=== PATIENT | female | born 1975 | race Caucasian/White ===

== ENCOUNTER 2017-05-05 20:56 | Emergency (ER) | payer OTHER ==
[2017-05-05 21:09] VITALS: TEMP 98.9; BMI 29.2
--- NOTE | 2017-05-05 22:07 | PDOC ---
History of Present Illness - General History Source: Patient Exam Limitations: No Limitations - History of Present Illness Initial Comments: 05/05/17 23:03 The patient is a 42 year old female with a significant past medical history of PTSD and anxiety who presents to the ED with complaints of lower extremity edema. The patient reports bilateral lower extremity edema that is worsened when she stands and relieved when she lays down. She reports pain in her lower extremities bilaterally that is worsened when walking. Patient also reports dizziness when she eats. Denies dysuria or changes in urinary output. Denies chest pain or shortness of breath. Denies loss of appetite. Denies fevers or chills. Denies nausea, vomiting, or diarrhea. Denies any other symptoms. Social hx: The patient is a pack a day smoker since she was 10. The patient stays at home with daughter, does not work. Surgical hx: , gallbladder removal <Morgan Reich - Last Filed: 05/05/17 23:03> <Zuly Mcclain - Last Filed: 05/06/17 20:53> - General Chief Complaint: Edema Stated Complaint: SWOLLEN LEGS Time Seen by Provider: 05/05/17 21:50 Past History <Morgan Reich - Last Filed: 05/05/17 23:03> - Past Medical History GI Disorders: Yes (GALLSTONES) - Surgical History Cholecystectomy: Yes - Immunization History Immunization Up to Date: Yes - Psycho/Social/Smoking Cessation Hx Anxiety: No Suicidal Ideation: No Smoking History: Current every day smoker Have you smoked in the past 12 months: Yes Number of Cigarettes Smoked Daily: 20 Information on smoking cessation initiated: No 'Breaking Loose' booklet given: 11/04/14 Hx Alcohol Use: No Drug/Substance Use Hx: No Substance Use Type: None Hx Substance Use Treatment: No <Zuly Mcclain - Last Filed: 05/06/17 20:53> - Past Medical History Allergies/Adverse Reactions: Allergies Allergy/AdvReac Type Severity Reaction Status Date / Time No Known Allergies Allergy Verified 05/05/17 21:10 Home Medications: Ambulatory Orders NK [No Known Home Medication] 05/05/17 Review of Systems - Review of Systems Able to Perform ROS?: Yes Comments:: 05/05/17 23:03 CONSTITUTIONAL: Absent: fever, chills, diaphoresis, generalized weakness, malaise, loss of appetite HEENT: Absent: rhinorrhea, nasal congestion, throat pain, throat swelling, difficulty swallowing, mouth swelling, ear pain, eye pain, visual Changes CARDIOVASCULAR: Absent: chest pain, syncope, palpitations, irregular heart rate, lightheadedness , peripheral edema RESPIRATORY: Absent: cough, shortness of breath, dyspnea with exertion, orthopnea, wheezing, stridor, hemoptysis GASTROINTESTINAL: Absent: abdominal pain, abdominal distension, nausea, vomiting, diarrhea, constipation, melena, hematochezia GENITOURINARY: Absent: dysuria, frequency, urgency, hesitancy, hematuria, flank pain, genital pain MUSCULOSKELETAL: + leg edema, leg pain SKIN: Absent: rash, itching, pallor HEMATOLOGIC/IMMUNOLOGIC: Absent: easy bleeding, easy bruising, lymphadenopathy, frequent infections ENDOCRINE: Absent: unexplained weight gain, unexplained weight loss, heat intolerance, cold intolerance NEUROLOGIC: + dizziness Absent: headache, focal weakness or paresthesias, unsteady gait, seizure, mental status changes, bladder or bowel incontinence PSYCHIATRIC: Absent: anxiety, depression, suicidal or homicidal ideation, hallucinations. All Other Systems: Reviewed and Negative <Morgan Reich - Last Filed: 05/05/17 23:03> *Physical Exam - Vital Signs Last Vital Signs Temp Pulse Resp BP Pulse Ox 98.9 F 91 H 22 141/62 97 05/05/17 21:07 05/05/17 21:07 05/05/17 21:07 05/05/17 21:07 05/05/17 21:07 - Physical Exam Comments: 05/05/17 23:03 GENERAL:+ smells of cigarettes Well developed, well nourished. Awake and alert. No acute distress. HEENT: Normocephalic, atraumatic. PERRLA, EOMI. No conjunctival pallor. Sclera are non- icteric. Moist mucous membranes. Oropharynx is clear. NECK: Supple. Full ROM. No JVD. Carotid pulses 2+ and symmetric, without bruits. No thyromegaly. NCo lymphadenopathy. CARDIOVASCULAR: Regular rate and rhythm. No murmurs, rubs, or gallops. Distal pulses are 2+ and symmetric. PULMONARY: No evidence of respiratory distress. Lungs clear to auscultation bilaterally. No wheezing, rales or rhonchi. ABDOMINAL: Soft. Non-tender. Non-distended. No rebound or guarding. No organomegaly. Normoactive bowel sounds. MUSCULOSKELETAL Normal range of motion at all joints. No bony deformities or tenderness. No CVA tenderness. EXTREMITIES: No cyanosis. No clubbing. No edema. No calf tenderness. SKIN: Warm and dry. Normal capillary refill. No rashes. No jaundice. NEUROLOGICAL: Alert, awake, appropriate. Cranial nerves 2-12 intact. No deficits to light touch and temperature in face, upper extremities and lower extremities. No motor deficits in the in face, upper extremities and lower extremities. Normoreflexic in the upper and lower extremities. Normal speech. Toes are down- going bilaterally. Gait is normal without ataxia. PSYCHIATRIC: Cooperative. Good eye contact. Appropriate mood and affect. <Morgan Reich - Last Filed: 05/05/17 23:03> - Vital Signs Last Vital Signs Temp Pulse Resp BP Pulse Ox 98.9 F 91 H 22 141/62 97 05/05/17 21:07 05/05/17 21:07 05/05/17 21:07 05/05/17 21:07 05/05/17 21:07 <Zuly Mcclain - Last Filed: 05/06/17 20:53> ED Treatment Course - LABORATORY CBC & Chemistry Diagram: 05/05/17 23:40 05/05/17 23:40 <Zuly Mcclain - Last Filed: 05/06/17 20:53> Medical Decision Making - Medical Decision Making 05/06/17 00:26 Patient Name: Flory Elena THIS IS A PRELIMINARYREPORT FROM [facility] EXAM : Venous duplex bilateral lower extremities IMAGES: 39 INDICATION: Rule out DVT DATE OF SERVICE: 2017-05-05 22:26:32.0 COMPARISON: none FINDINGS: There is no DVT in the right and left lower extremity. IMPRESSION: No DVT. THIS DOCUMENT HAS BEEN ELECTRONICALLY SIGNED 05/06/17 20:50 Pt comes with complaint of edema of her legs bilaterally. SHe has normal exam. SHe has a hx of anxiety and PTSD. Pt's sono demonstrates no DVT in either leg. She has normal labs except for low potassium. Pt was asked to eat bananas and OJ and follow with PMD. She was givenb Potassium Chloride PO in the ER. Pt is stable for discharge home. <Zuly Mcclain - Last Filed: 05/06/17 20:53> *DC/Admit/Observation/Transfer - Attestations Scribe Attestion: 05/05/17 23:03 Documentation prepared by Morgan Reich, acting as emergency medicine medical director for Zuly Mcclain MD <Morgan Reich - Last Filed: 05/05/17 23:03> <Zuly Mcclain - Last Filed: 05/06/17 20:53> Diagnosis at time of Disposition: dischareged - Discharge Dispostion Disposition: HOME
[2017-05-05 23:58] LABS: URINE APPEARANCE CLEAR; URINE BILIRUBIN NEGATIVE (NEGATIVE); URINE BLOOD NEGATIVE (NEGATIVE); URINE COLOR COLORLESS; URINE GLUCOSE (UA) NEGATIVE (NEGATIVE); URINE KETONE NEGATIVE (NEGATIVE); URINE LEUK ESTERASE NEGATIVE (NEGATIVE); URINE NITRITE NEGATIVE (NEGATIVE); URINE PROTEIN NEGATIVE (NEGATIVE); URINE UROBILINOGEN NEGATIVE E.U./dl (0.2-1.0)
[2017-05-06 00:02] LABS: BASOPHIL 0.6 % (0-2.0); EOSINOPHIL 0.5 % (0-4.5); MCH 22.6 pg (25.7-33.7); MCHC 31.7 g/dl (32.0-36.0); MEAN CELL VOLUME 71.5 fl (80-96); MEAN PLT VOLUME 7.8 fl (7.5-11.1); NEUTROPHILS 69.8 % (42.8-82.8); PLATELET COUNT 330 K/MM3 (134-434); RDW 14.4 % (11.6-15.6); WHITE BLOOD COUNT 13.9 K/mm3 (4.0-10.0)
[2017-05-06 00:12] LABS: INR 0.96 (0.82-1.09); PROTHROMBIN TIME (PATIENT) 10.5 SEC (9.98-11.88)
[2017-05-06 00:27] LABS: ALBUMIN 2.8 g/dl (3.4-5.0); AMYLASE 40 U/L (25-115); ANION GAP 12 (8-16); CALCIUM 8.2 mg/dL (8.5-10.1); CO2 27 mmol/L (21-32); GLUCOSE,RANDOM 90 mg/dL (74-106)
[2017-05-06 00:31] LABS: ALK PHOS 108 U/L (45-117); BILIRUBIN,TOTAL 0.2 mg/dL (0.2-1.0); COCKROFT - GAULT 141.3635; CREATININE 0.6 mg/dL (0.55-1.02); SGOT/AST 9 U/L (15-37); SGPT/ALT 10 U/L (12-78); TOT PROT 6.5 g/dl (6.4-8.2)
[2017-05-06] MEDS ORDERED: POTASSIUM CHLORIDE TABS 20 MEQ TABLET.ER (FP) PO ONE ×2 (00:55→01:26)
[2017-05-06 01:41] VITALS: BP 132/78; PULSE 78
== END 2017-05-06 01:41 | disposition home or self-care (01) ==
LOC: SUPCPDRO 20:56 → JER 20:56
DX: R60.9 Edema, unspecified (principal); F43.10 Post-traumatic stress disorder, unspecified; F17.210 Nicotine dependence, cigarettes, uncomplicated; Z87.19 Personal history of other diseases of the digestive system
CPT/HCPCS: 36415; 80053; 81003; 82150; 83690; 84703; 85025; 85610; 93970-TC; 99282-25

== ENCOUNTER 2019-02-07 23:20 | Emergency (ER) | payer OTHER ==
[2019-02-07 23:30] VITALS: BMI 30.7
--- NOTE | 2019-02-08 00:10 | PDOC ---
History of Present Illness - General Chief Complaint: Back Pain Stated Complaint: BACK PAIN Time Seen by Provider: 02/07/19 23:48 - History of Present Illness Initial Comments: 02/08/19 00:09 The patient denies chest pain, shortness of breath, headache and dizziness. Denies fever, chills, nausea, vomit, diarrhea and constipation. Denies dysuria, frequency, urgency and hematuria. Past History - Past Medical History Allergies/Adverse Reactions: Allergies Allergy/AdvReac Type Severity Reaction Status Date / Time aspirin Allergy Verified 02/07/19 23:27 Home Medications: Ambulatory Orders NK [No Known Home Medication] 05/05/17 COPD: No GI Disorders: Yes (GALLSTONES) - Surgical History Cholecystectomy: Yes - Immunization History Immunization Up to Date: Yes - Suicide/Smoking/Psychosocial Hx Smoking History: Never smoked Have you smoked in the past 12 months: Yes Number of Cigarettes Smoked Daily: 20 'Breaking Loose' booklet given: 11/04/14 Hx Alcohol Use: No Drug/Substance Use Hx: No Substance Use Type: None Hx Substance Use Treatment: No Review of Systems - Review of Systems Comments:: 02/08/19 00:09 GENERAL/CONSTITUTIONAL: No fever or chills. No weakness. HEAD, EYES, EARS, NOSE AND THROAT: No change in vision. No ear pain or discharge. No sore throat. CARDIOVASCULAR: No chest pain or shortness of breath RESPIRATORY: No cough, wheezing, or hemoptysis. GASTROINTESTINAL: No nausea, vomiting, diarrhea or constipation. GENITOURINARY: No dysuria, frequency, or change in urination. MUSCULOSKELETAL: No joint or muscle swelling or pain. No neck or back pain. SKIN: No rash NEUROLOGIC: No headache, vertigo, loss of consciousness, or change in strength/ sensation. ENDOCRINE: No increased thirst. No abnormal weight change HEMATOLOGIC/LYMPHATIC: No anemia, easy bleeding, or history of blood clots. ALLERGIC/IMMUNOLOGIC: No hives or skin allergy. *Physical Exam - Vital Signs Last Vital Signs Temp Pulse Resp BP Pulse Ox 98.2 F 113 H 18 124/66 100 02/07/19 23:25 02/07/19 23:25 02/07/19 23:25 02/07/19 23:25 02/07/19 23:25 - Physical Exam Comments: 02/08/19 00:09 GENERAL: Awake, alert, and fully oriented, in no acute distress HEAD: No signs of trauma, normocephalic, atraumatic EYES: PERRLA, EOMI, sclera anicteric, conjunctiva clear ENT: Auricles normal inspection, hearing grossly normal, nares patent, oropharynx clear without exudates. Moist mucosa NECK: Normal ROM, supple, no lymphadenopathy, JVD, or masses LUNGS: No distress, speaks full sentences, clear to auscultation bilaterally HEART: Regular rate and rhythm, normal S1 and S2, no murmurs, rubs or gallops, peripheral pulses normal and equal bilaterally. ABDOMEN: Soft, nontender, normoactive bowel sounds. No guarding, no rebound. No masses EXTREMITIES: Normal inspection, Normal range of motion, no edema. No clubbing or cyanosis. NEUROLOGICAL: Cranial nerves II through XII grossly intact. Normal speech, normal gait, no focal sensorimotor deficits SKIN: Warm, Dry, normal turgor, no rashes or lesions noted. Moderate Sedation - Procedure Monitoring Vital Signs: Procedure Monitoring Vital Signs Temperature 98.2 F 02/07/19 23:25 Pulse Rate 113 H 02/07/19 23:25 Respiratory Rate 18 02/07/19 23:25 Blood Pressure 124/66 02/07/19 23:25 O2 Sat by Pulse Oximetry (%) 100 02/07/19 23:25
[2019-02-08] MEDS ORDERED: KETOROLAC TROMETHAMINE 30 MG/1 ML VIAL IM ONE (00:16)
--- NOTE | 2019-02-08 00:16 | PDOC ---
History of Present Illness - General Chief Complaint: Back Pain Stated Complaint: BACK PAIN Time Seen by Provider: 02/07/19 23:48 History Source: Patient Exam Limitations: No Limitations - History of Present Illness Initial Comments: 02/08/19 00:02 43 yo female no significant pmh presents to the ED with right sided back pain. Pt states last Monday she lifted her ferret cage which was very heavy and the next morning had right sided mid back pain described as a constant pulling/spasm , non radiating, made worse when on right side and with movement. Pt tried Icy hot gel and advil at home without help. Pt admits to having a similar episode 1 year ago, went to [place] and got a 1 time injection which helped and the pain did not return. Pt denies saddle anesthesia, incontinence or retention of stool or urine, abdominal pain, numbness/tingling or weakness into either leg, midline spine tenderness, no difficulty ambulating, denies F/C/N/V, CP or SOB Past History - Past Medical History Allergies/Adverse Reactions: Allergies Allergy/AdvReac Type Severity Reaction Status Date / Time aspirin Allergy Verified 02/07/19 23:27 Home Medications: Ambulatory Orders NK [No Known Home Medication] 05/05/17 COPD: No GI Disorders: Yes (GALLSTONES) - Surgical History Cholecystectomy: Yes - Immunization History Immunization Up to Date: Yes - Suicide/Smoking/Psychosocial Hx Smoking History: Never smoked Have you smoked in the past 12 months: Yes Number of Cigarettes Smoked Daily: 20 'Breaking Loose' booklet given: 11/04/14 Hx Alcohol Use: No Drug/Substance Use Hx: No Substance Use Type: None Hx Substance Use Treatment: No Review of Systems - Review of Systems Constitutional: No: Chills, Fever Respiratory: No: Shortness of Breath Cardiac (ROS): No: Chest Pain ABD/GI: Yes: Other (denies abdominal pain). No: Constipated, Diarrhea, Nausea, Vomiting : No: Burning, Dysuria, Discharge, Frequency Musculoskeletal: Yes: Back Pain (right mid back) Integumentary: No: Change in Color Neurological: No: Numbness, Paresthesia, Weakness, Unsteady Gait, Ataxia *Physical Exam - Vital Signs Last Vital Signs Temp Pulse Resp BP Pulse Ox 98.2 F 113 H 18 124/66 100 02/07/19 23:25 02/07/19 23:25 02/07/19 23:25 02/07/19 23:25 02/07/19 23:25 - Physical Exam General Appearance: Yes: Nourished, Appropriately Dressed. No: Apparent Distress HEENT: positive: EOMI Neck: positive: Supple. negative: Tender midline Respiratory/Chest: positive: Lungs Clear, Normal Breath Sounds. negative: Accessory Muscle Use, Crackles, Wheezing Cardiovascular: positive: Regular Rhythm, S1, S2, Tachycardia. negative: Edema , JVD, Murmur Vascular Pulses: Dorsalis-Pedis (R): 4+, Doralis-Pedis (L): 4+ Gastrointestinal/Abdominal: positive: Flat, Soft. negative: Pulsatile Mass, Distended, Guarding, Rebound, Tenderness Musculoskeletal: positive: Normal Inspection, Other (no rashes, scars, step offs or deformity to back. Full ROM in flexion and extension of back, pain on palpation to lateral T 5-L5 back. negative straight leg raise bilaterally) Extremity: positive: Normal Capillary Refill Integumentary: positive: Normal Color, Dry, Warm Neurologic: positive: Fully Oriented, Alert, Normal Mood/Affect, Normal Response , Motor Strength 5/5. negative: Sensory Deficit Moderate Sedation - Procedure Monitoring Vital Signs: Procedure Monitoring Vital Signs Temperature 98.2 F 02/07/19 23:25 Pulse Rate 113 H 02/07/19 23:25 Respiratory Rate 18 02/07/19 23:25 Blood Pressure 124/66 02/07/19 23:25 O2 Sat by Pulse Oximetry (%) 100 02/07/19 23:25 Medical Decision Making - Medical Decision Making 02/08/19 01:56 43 yo female no sig pmh presents to the ED with 1 week of back pain, no incontinence, saddle anesthesia, numbness/weakness into the legs, abdominal pain , midline spine tenderness or rashs noted on exam Vitals show elevated HR otherwise WNL No concerning neurological s/s, neurovascualrly intact, pt ambulating, NAD, AOX3 DDX INLT: herniated disc (no neurological s/s, neg straight leg raise) Spine fracture (unlikely due to non traumatic cause of pain, no midline spine tenderness) Muscle spasm/sprain Pt given 30 mg IV toradol with great improvement in pain, able to flex and extend the spine without much pain, ambulating well Pt given Clinic referral to [facility], del PCP. Will f/u Pt understands dc instructions *DC/Admit/Observation/Transfer Diagnosis at time of Disposition: Back pain Qualifiers: Back pain location: thoracic back pain Chronicity: unspecified Back pain laterality: right Qualified Code(s): M54.6 - Pain in thoracic spine - Discharge Dispostion Disposition: HOME Condition at time of disposition: Good Decision to Admit order: No - Referrals Referrals: [facility] [Provider Group] - Patient Instructions Printed Discharge Instructions: DI for Low Back Pain, DI for Thoracic Back Pain Additional Instructions: Please make an appointment with the clinic referred to you. Expect a call regarding an appointment within the next 48 hours. Take over the counter Motrin and Tylenol for pain relief. Try to lift from your legs when lifting heavy objects. Return to the ER for new or concerning symptoms including but not limited to: numbness or weakness into your legs, inability to walk, incontinence or numbness in between your legs. Thank you - Post Discharge Activity
[2019-02-08] MEDS ORDERED: KETOROLAC TROMETHAMINE 30 MG/1 ML VIAL ONE (00:24)
--- NOTE | 2019-02-08 01:20 | PDOC ---
Attending Attestation - HPI HPI: 02/08/19 01:29 The patient is a 43-year-old female with no significant past medical history presents to the emergency department with back pain. The patient reported last Garth she lifted her ferrets cage without bending her knees, and the next morning she had pain to the right mid-back that comes around the flank region. The patient reports taking Advil and icy hot for the pain, without relief. The patient reports a similar incident about a year while moving her wardrobe. The patient reports following up at [facility], where she got an injection of Toradol, with relief. Denies saddle anesthesia, urinary or bowel incontinence , urinary symptoms, abdominal pain, chest pain, numbness, tingling, weakness, loss of sensation. Allergies: ASA PCP: Follows up [facility]. - Physicial Exam PE: 02/08/19 01:29 GENERAL: Awake, alert, and fully oriented, in no acute distress. +cigarettes smell on breath. HEAD: No signs of trauma EYES: PERRLA, EOMI, sclera anicteric, conjunctiva clear ENT: Auricles normal inspection, hearing grossly normal, nares patent, oropharynx clear without exudates. Moist mucosa NECK: Normal ROM, supple, no lymphadenopathy, JVD, or masses LUNGS: Breath sounds equal, clear to auscultation bilaterally. No wheezes, and no crackles HEART: Regular rate and rhythm, normal S1 and S2, no murmurs, rubs or gallops ABDOMEN: Soft, nontender. No guarding, no rebound. No masses EXTREMITIES: Normal range of motion, no edema. No clubbing or cyanosis. No cords, erythema, or tenderness Back: No C, T, L spine tenderness. R mid-thoracic paraspinal reproducible tenderness. NEUROLOGICAL: ambulates with a steady gait, able to ambulate on the toes and heels, sensation intact throughout. 5/5 muscle strength. Is able to dorsiflex the big toe. Normal speech. SKIN: Warm, Dry, normal turgor, no rashes or lesions noted. - Medical Decision Making 02/08/19 01:30 Documentation prepared by Jackie Burch, acting as medical practitioners for Olga Khan DO. <Jackie Burch - Last Filed: 02/08/19 01:30> - Resident Resident Name: [email or web address] - ED Attending Attestation I have performed the following: I have examined & evaluated the patient, The case was reviewed & discussed with the resident, I agree w/resident's findings & plan, Exceptions are as noted - Medical Decision Making 02/08/19 01:18 I, Dr. Olga Khan, DO, attest that this document has been prepared under my direction and personally reviewed by me in its entirety. I further attest, that it accurately reflects all work, treatment, procedures and medical decision -making performed by me. 02/08/19 01:19 a/p: 43yo female with R paraspinal back pain after lifting the ferret cage a week ago -hx of similar in the past which improved with toradol -pt denies all symptoms of caude equina -pt ambulates with a steady gait -no midline ttp -pt neuro intact, muscle strength 5/5 UE and LE -no low back ttp -no red flags -pt bent at the waste and lifted the cage without using her legs -will give im toradol and reassess 02/08/19 01:38 pt feeling much better ambulatory in the ED will repeat vitals and dc to home 02/08/19 01:47 vss improved stable for dc to home <Olga Khan - Last Filed: 02/08/19 01:47>
[2019-02-08 01:46] VITALS: BP 114/77; PULSE 83; TEMP 97.9
== END 2019-02-08 01:54 | disposition home or self-care (01) ==
LOC: JER 23:20
PROC: 3E0233Z Introduction of Anti-inflammatory into Muscle, Percutaneous Approach (ICD-10-PCS; principal; 2019-02-07)
DX: M54.6 Pain in thoracic spine (principal); X50.0XXA Overexertion from strenuous movement or load, initial encounter; Y93.89 Activity, other specified; Y92.038 Other place in apartment as the place of occurrence of the external cause; Y99.8 Other external cause status
CPT/HCPCS: 99282-25

== ENCOUNTER 2022-05-24 21:28 | Inpatient (IN) | payer OTHER ==
[2022-05-24 21:43] VITALS: BMI 32.9
[2022-05-24] MEDS ORDERED: ACETAMINOPHEN INJECTION 100 ML IVPB ONE (22:25)
[2022-05-24] MEDS ORDERED: ACETAMINOPHEN 1000 MG/100 ML BAG IVPB ONE (22:31)
[2022-05-24] MEDS ORDERED: ALBUTEROL SO4 2.5/IPRATROPIUM 0.5 INH SOL 3 ML VIAL.NEB. NEB ONE ×2 (22:31→22:37)
[2022-05-24 23:19] LABS: BASO % 0.3 % (0-2.0); EOS % 0.1 % (0-4.5); HEMATOCRIT 33.8 % (32.4-45.2); LYMPH % 5.9 % (8-40); MCH 22.7 pg (25.7-33.7); MCHC 32.5 g/dl (32.0-36.0); MEAN CELL VOLUME 69.7 fl (80-96); MEAN PLT VOLUME 7.7 fl (7.5-11.1); MONO % 7.7 % (3.8-10.2); PLATELET COUNT 218 10^3/uL (134-434); RBC 4.84 M/mm3 (3.60-5.2); RDW 16.1 % (11.6-15.6); WHITE BLOOD COUNT 6.4 K/mm3 (4.0-10.0)
[2022-05-24] MEDS ORDERED: SODIUM CHLORIDE 500 ML IV STA (23:27)
[2022-05-24 23:40] LABS: CHLORIDE 102 mmol/L (98-107); SODIUM 139 mmol/L (136-145)
[2022-05-24 23:42] LABS: ALBUMIN 3.1 g/dl (3.4-5.0); ANION GAP 10 MMOL/L (8-16); CALCIUM 8.1 mg/dL (8.5-10.1); CO2 27 mmol/L (21-32); GLUCOSE,RANDOM 107 mg/dL (74-106)
[2022-05-24 23:45] LABS: CREATININE 0.7 mg/dL (0.55-1.3); SGPT/ALT 20 U/L (13-61)
[2022-05-24 23:46] LABS: SGOT/AST 18 U/L (15-37)
[2022-05-24 23:47] LABS: BILIRUBIN,TOTAL 0.2 mg/dL (0.2-1)
[2022-05-24 23:48] LABS: ALK PHOS 96 U/L (45-117)
[2022-05-24] MEDS ORDERED: POTASSIUM CHLORIDE TABS 20 MEQ TABLET.ER (FP) PO ONE (23:53)
[2022-05-24] MEDS ORDERED: DEXAMETHASONE SOD PHOSPHATE 10 MG/1 ML VIAL IVPUSH ONE (23:53)
[2022-05-24 23:56] LABS: BLOOD UREA NITROGEN 2.7 mg/dL (7-18)
[2022-05-25] MEDS ORDERED: POTASSIUM CHLORIDE TABS 20 MEQ TABLET.ER (FP) PO ONE (00:25)
[2022-05-25] MEDS ORDERED: DEXAMETHASONE SOD PHOSPHATE 10 MG/1 ML VIAL ONE (00:25)
[2022-05-25] MEDS ORDERED: REMDESIVIR 200 MG in SODIUM CHLORIDE 250 ML IVPB ONE (04:00)
[2022-05-25] MEDS ORDERED: ACETAMINOPHEN 1000 MG/100 ML BAG IVPB PRN (06:00)
[2022-05-25 08:19] LABS: HEMATOCRIT 32.9 % (32.4-45.2); HEMOGLOBIN 10.5 GM/dL (10.7-15.3); MCH 22.3 pg (25.7-33.7); MCHC 32.1 g/dl (32.0-36.0); MEAN CELL VOLUME 69.7 fl (80-96); MEAN PLT VOLUME 8.3 fl (7.5-11.1); PLATELET COUNT 227 10^3/uL (134-434); RBC 4.72 M/mm3 (3.60-5.2); RDW 16.4 % (11.6-15.6); WHITE BLOOD COUNT 6.9 K/mm3 (4.0-10.0)
[2022-05-25 08:46] LABS: ALBUMIN 2.9 g/dl (3.4-5.0); BLOOD UREA NITROGEN 4.1 mg/dL (7-18); CALCIUM 7.7 mg/dL (8.5-10.1); MAGNESIUM 2.1 mg/dL (1.8-2.4)
[2022-05-25 08:49] LABS: CREATININE 0.5 mg/dL (0.55-1.3); PHOSPHOROUS 3.9 mg/dL (2.5-4.9)
[2022-05-25 08:50] LABS: TOT PROT 6.8 g/dl (6.4-8.2)
[2022-05-25 08:51] LABS: BILIRUBIN,TOTAL 0.2 mg/dL (0.2-1)
[2022-05-25] MEDS ORDERED: NICOTINE 7 MG/24 HOURS TOPICAL PATCH TD SCH (10:00)
[2022-05-25] MEDS ORDERED: ENOXAPARIN NA (PORCINE) 40 MG/0.4 ML DISP.SYRIN SQ SCH (10:00)
[2022-05-25] MEDS ORDERED: NICOTINE 7 MG/24 HOURS TOPICAL PATCH TD ONE (10:19)
[2022-05-25] MEDS ORDERED: ENOXAPARIN NA (PORCINE) 40 MG/0.4 ML DISP.SYRIN SQ ONE (10:20)
[2022-05-25 11:39] LABS: ANISOCYTOSIS 3+; MACROCYTOSIS 0
[2022-05-25 12:44] LABS: N-TERMINAL BNP 1031.4 pg/ml (5-125)
[2022-05-25 13:19] VITALS: BP 106/60; PULSE 90; TEMP 98.2
[2022-05-26] MEDS ORDERED: REMDESIVIR 100 MG in SODIUM CHLORIDE 250 ML IVPB SCH (04:00)
== END 2022-05-25 15:58 | disposition left against medical advice (07) | DRG 137 ==
LOC: JER 21:28 → JERBED 05-25 00:43 → INTOOBSV 05-25 00:43 → J4W 05-25 11:22 → OBSVTOIN 05-25 13:05
PROVIDERS: ADMIT Hospitalist
DX: U07.1 COVID-19 (principal); F17.210 Nicotine dependence, cigarettes, uncomplicated; R06.02 Shortness of breath; R07.89 Other chest pain; R00.0 Tachycardia, unspecified
CPT/HCPCS: 0241U-QW; 36415; 71045-TC-FY; 80053; 80061; 82728; 83615; 83735; 83880; 84100; 84443; 84484; 84703; 85025; 85651; 86140; 93005; 93010; 99285-25; C9399; G0378; J1100

== ENCOUNTER 2022-12-24 18:50 | Emergency (ER) | payer OTHER ==
[2022-12-24 18:59] VITALS: BP 115/76; PULSE 110; RESP 18; TEMP 98; BMI 32.9
[2022-12-24] MEDS ORDERED: ACETAMINOPHEN 1000 MG/100 ML BAG IVPB ONE (20:15)
[2022-12-24] MEDS ORDERED: FAMOTIDINE 20 MG/50 ML IVPB 20 MG/50 ML MG IVPB ONE ×2 (20:19→20:21)
[2022-12-24] MEDS ORDERED: ACETAMINOPHEN INJECTION 100 ML IVPB ONE (20:19)
[2022-12-24] MEDS ORDERED: ONDANSETRON 4 MG/2 ML VIAL ONE (20:21)
[2022-12-24 21:05] LABS: BASO % 0.4 % (0-2.0); EOS % 0.6 % (0-4.5); HEMOGLOBIN 12.7 GM/dL (10.7-15.3); LYMPH % 24.8 % (8-40); MCH 22.4 pg (25.7-33.7); MCHC 31.1 g/dl (32.0-36.0); MEAN CELL VOLUME 72.2 fl (80-96); MEAN PLT VOLUME 8.1 fl (7.5-11.1); MONO % 6.2 % (3.8-10.2); PLATELET COUNT 329 10^3/uL (134-434); RBC 5.68 M/mm3 (3.60-5.2); RDW 15.5 % (11.6-15.6); WHITE BLOOD COUNT 11.2 K/mm3 (4.0-10.0)
[2022-12-24 21:25] LABS: CALCIUM 9.2 mg/dL (8.5-10.1)
[2022-12-24 21:26] LABS: ALBUMIN 3.4 g/dl (3.4-5.0); BLOOD UREA NITROGEN 10.4 mg/dL (7-18); MAGNESIUM 2.1 mg/dL (1.8-2.4)
[2022-12-24 21:29] LABS: CREATININE 0.6 mg/dL (0.55-1.3)
[2022-12-24 21:31] LABS: BILIRUBIN,TOTAL 0.6 mg/dL (0.2-1); TOT PROT 7.7 g/dl (6.4-8.2)
[2022-12-24] MEDS ORDERED: POTASSIUM CHLORIDE ORAL LIQUID 20 MEQ/15 ML PO ONE (22:04)
[2022-12-24] MEDS ORDERED: POTASSIUM CHLORIDE TABS 20 MEQ TABLET.ER (FP) PO ONE (22:31)
== END 2022-12-24 23:04 | disposition home or self-care (01) ==
LOC: JER 18:50
PROC: 3E0333Z Introduction of Anti-inflammatory into Peripheral Vein, Percutaneous Approach (ICD-10-PCS; principal; 2022-12-24)
PROC: 3E033GC Introduction of Other Therapeutic Substance into Peripheral Vein, Percutaneous Approach (ICD-10-PCS; 2022-12-24)
DX: R10.13 Epigastric pain (principal)
CPT/HCPCS: 36415; 71046-TC-FY; 76705-TC; 80053; 83690; 83735; 84439; 84443; 84484; 84703; 85025; 93005; 93010; 99285-25

== ENCOUNTER 2022-12-25 15:04 | Emergency (ER) | payer OTHER ==
[2022-12-25 15:14] VITALS: RESP 18; TEMP 98; BMI 33.6
[2022-12-25 16:54] LABS: RDW 15.8 % (11.6-15.6)
[2022-12-25 17:02] VITALS: BP 109/58; PULSE 99
[2022-12-25 17:09] LABS: BASO % 0.7 % (0-2.0); EOS % 0.4 % (0-4.5); HEMOGLOBIN 12.9 GM/dL (10.7-15.3); LYMPH % 30.6 % (8-40); MCH 22.8 pg (25.7-33.7); MCHC 31.5 g/dl (32.0-36.0); MEAN CELL VOLUME 72.5 fl (80-96); MEAN PLT VOLUME 8.4 fl (7.5-11.1); NEUT % 62.3 % (42.8-82.8); PLATELET COUNT 340 10^3/uL (134-434); RBC 5.66 M/mm3 (3.60-5.2); WHITE BLOOD COUNT 8.6 K/mm3 (4.0-10.0)
[2022-12-25 17:10] LABS: CALCIUM 9.2 mg/dL (8.5-10.1)
[2022-12-25 17:11] LABS: ALBUMIN 3.7 g/dl (3.4-5.0); BLOOD UREA NITROGEN 8.6 mg/dL (7-18)
[2022-12-25] MEDS ORDERED: POTASSIUM CHLORIDE ORAL LIQUID 20 MEQ/15 ML PO ONE (17:11)
[2022-12-25 17:14] LABS: CREATININE 0.7 mg/dL (0.55-1.3)
[2022-12-25 17:15] LABS: BILIRUBIN,TOTAL 0.5 mg/dL (0.2-1); TOT PROT 8.2 g/dl (6.4-8.2)
[2022-12-25 17:19] LABS: N-TERMINAL BNP 40.4 pg/ml (5-125)
== END 2022-12-25 18:15 | disposition home or self-care (01) ==
LOC: JER 15:04
DX: R06.02 Shortness of breath (principal)
CPT/HCPCS: 36415; 71275-TC; 80053; 83880; 84484; 85025; 86850; 86900; 86901; 93005; 93010; 93971-TC; 99285-25; Q9967

== ENCOUNTER 2023-04-18 04:40 | Day surgery (SDC) | payer OTHER ==
[2023-04-13 16:36] VITALS: BMI 30.5
[2023-04-18 08:24] VITALS: TEMP 97.8
[2023-04-18 08:53] VITALS: BP 110/64; PULSE 66; RESP 16
== END 2023-04-18 08:57 | disposition home or self-care (01) ==
LOC: JASU-ENDO 04:40
PROVIDERS: ATTEND Internal Medicine Gastroenterology
PROC: 0DBL8ZX Excision of Transverse Colon, Via Natural or Artificial Opening Endoscopic, Diagnostic (ICD-10-PCS; principal; 2023-04-18 08:00)
DX: Z12.11 Encounter for screening for malignant neoplasm of colon (principal); D12.3 Benign neoplasm of transverse colon; K64.8 Other hemorrhoids; K57.30 Diverticulosis of large intestine without perforation or abscess without bleeding
CPT/HCPCS: 81025; 88305-TC; 88341-TC; 88342-TC